=== PATIENT | female | born 1990 | race Caucasian/White ===

== ENCOUNTER 2017-05-15 23:00 | Observation (INO) | payer MEDICAID ==
[2017-05-15] MEDS ORDERED: Naloxone 2 MG/2 ML Syringe IVPUSH ONE (23:02)
[2017-05-15 23:26] LABS: CHLORIDE,CL 106 mmol/L (101-111); SODIUM,NA 139 mmol/L (135-145)
--- NOTE | 2017-05-15 23:32 | EDM.PDOC ---
ED HPI GENERAL MEDICAL PROBLEM - General Chief Complaint: Drug or Alcohol Abuse Stated Complaint: AMBULANCE Time Seen by Provider: 05/15/17 23:08 Source of Information: Reports: Patient, EMS - History of Present Illness INITIAL COMMENTS - FREE TEXT/NARRATIVE: ED via [facility] with altered mental status. Mother reported to have called for welfare check on patient. Found by [facility] unresponsive. EMS reported no response to sternal rub. Pupils nonreactive at 5. Narcan 2mg given enroute. Patient lethargic on arrival, Slow response to questions, admits to taking 2 bottles of Triple C around supper time, Response vague with other ingestion, variable response to unknown what else she took, to denying other ingestion, EMS reported uempty bottle of ibuprofen in vicinity. Patient incontinent of stool. [place] liquid emesis on scene. Patient denies threat to harm self. - Related Data Allergies Allergy/AdvReac Type Severity Reaction Status Date / Time iodine Allergy Cannot Verified 05/16/17 05:41 Remember morphine Allergy Cannot Verified 05/16/17 05:41 Remember Home Meds: Home Meds . [Unable to Verify Home Med List] 05/15/17 [History] Social & Family History - Tobacco Use Smoking Status *Q: Unknown Ever Smoked ED ROS GENERAL - Review of Systems Review Of Systems: Unable To Obtain - Physical Exam Exam: See Below Exam Limited By: Altered Mental Status General Appearance: Lethargic, Obese Eye Exam: Bilateral Eye: PERRL (sluggish 6mm) Ears: Normal External Exam, Normal TMs Nose: Normal Inspection Throat/Mouth: Normal Inspection Head Exam: Atraumatic, Normocephalic Neck: No: Lymphadenopathy (L), Lymphadenopathy (R) Respiratory/Chest: No Respiratory Distress, Lungs Clear, Normal Breath Sounds Cardiovascular: Normal Peripheral Pulses, Regular Rate, Rhythm GI/Abdominal: Normal Bowel Sounds, Soft Neuro Exam (Abbreviated): Inattentive, Slow to Respond. No: Alert Extremities: Normal Inspection Skin Exam: Warm, Dry, Intact, Tattoo(s) Course - Vital Signs Last Recorded V/S: Last Vital Signs Temp 98.0 F 05/15/17 23:20 Pulse 73 05/16/17 04:45 Resp 16 05/16/17 04:45 BP 152/98 H 05/16/17 04:45 Pulse Ox 96 05/16/17 04:45 - Orders/Labs/Meds Orders: Active Orders 24 hr Category Date Time Status Patient Status [ADT] Routine ADT 05/16/17 07:14 Active Cardiac Monitoring [RC] CONTINUOUS Care 05/16/17 07:16 Active EKG Documentation Completion [RC] URGENT Care 05/15/17 23:00 Active Oxygen Therapy [RC] PRN Care 05/16/17 07:14 Active Up With Assistance [RC] ASDIRECTED Care 05/16/17 07:14 Active VTE/DVT Education [RC] PER UNIT ROUTINE Care 05/16/17 07:14 Active Vital Signs [RC] Q4H Care 05/16/17 07:14 Active Consult to Psychiatric Intake Coord [Behavioral Health Cons 05/16/17 07:17 Active Evaluation] [CONS] Routine CHLAMYDIA TRACHOMATIS/GC AMPLF Urgent Lab 05/15/17 23:06 Received CULTURE URINE [] Stat Lab 05/15/17 23:06 Received Heparin Sodium Med 05/16/17 14:00 Ordered 5,000 units SUBCUT Q8HR Sodium Chloride 0.9% [Normal Saline] 1,000 ml Med 05/16/17 00:15 Active IV .BOLUS Sodium Chloride 0.9% [Normal Saline] 1,000 ml Med 05/16/17 07:15 Ordered IV ASDIRECTED Resuscitation Status Routine Resus Stat 05/16/17 07:14 Ordered Medication Orders Heparin Sodium (Porcine) (Heparin Sodium) 5,000 units SUBCUT Q8HR DIPTI Sodium Chloride (Normal Saline) 1,000 mls @ 100 mls/hr IV .BOLUS ONE Stop: 05/16/17 10:14 Last Admin: 05/16/17 00:20 Dose: 100 mls/hr Sodium Chloride (Normal Saline) 1,000 mls @ 100 mls/hr IV ASDIRECTED [facility] Labs: Laboratory Tests 05/15/17 05/15/17 05/15/17 Range/Units 23:00 23:00 23:00 WBC 20.9 H (5.0-10.0) 10^3/uL RBC 6.21 H (4.2-5.4) 10^6/uL Hgb 16.2 H (12.0-16.0) g/dL Hct 47.2 H (37.0-47.0) % MCV 76.0 L (80-100) fL MCH 26.1 L (27.0-34.0) pg MCHC 34.3 (33.0-35.0) g/dL Plt Count 236 (150-450) 10^3/uL Neut % (Auto) 87.1 H (42.2-75.2) % Lymph % (Auto) 9.8 L (20.5-50.1) % [place] % (Auto) 3.1 (2-8) % Eos % (Auto) 0.0 L (1.0-3.0) % Baso % (Auto) 0.0 (0.0-1.0) % Sodium 139 (135-145) mmol/L Potassium 3.9 (3.6-5.0) mmol/L Chloride 106 (101-111) mmol/L Carbon Dioxide 19.0 L (21.0-31.0) mmol/L Anion Gap 17.9 BUN 7 (7-18) mg/dL Creatinine 1.2 (0.6-1.3) mg/dL Est Cr Clr Drug Dosing 69.69 mL/min Estimated GFR (MDRD) 55 BUN/Creatinine Ratio 5.83 Glucose 121 H (74-105) mg/dL Calcium 9.0 (8.4-10.2) mg/dl Total Bilirubin 0.5 (0.2-1.0) mg/dL AST 26 (10-42) IU/L ALT 17 (10-60) IU/L Alkaline Phosphatase 119 (42-121) IU/L Total Protein 7.9 (6.7-8.2) g/dl Albumin 4.6 (3.2-5.5) g/dl Globulin 3.3 Albumin/Globulin Ratio 1.39 Amylase 65 (28-100) U/L Lipase 26 (22-51) U/L Urine Color Yellow (YELLOW) Urine Appearance Cloudy (CLEAR) Urine pH 5.5 (5.0-9.0) Ur Specific [place] 1.015 (1.005-1.030) Urine Protein Negative (NEGATIVE) Urine Glucose (UA) Negative (NEGATIVE) Urine Ketones Negative (NEGATIVE) Urine Occult Blood Trace-intact H (NEGATIVE) Urine Nitrite Positive H (NEGATIVE) Urine Bilirubin Negative (NEGATIVE) Urine Urobilinogen 0.2 (0.2-1.0) mg/dL Ur Leukocyte Esterase Small H (NEGATIVE) Urine RBC 0-5 /HPF Urine WBC 20-30 H (0-5/HPF) /HPF Ur Epithelial Cells Moderate H /HPF Urine Bacteria Many H (0-FEW/HPF) /HPF Urinalysis Comment Salicylates < 4.0 Urine Opiates Screen (NEGATIVE) Ur Oxycodone Screen (NEGATIVE) Urine Methadone Screen (NEGATIVE) Acetaminophen < 10.0 Ur Barbiturates Screen (NEGATIVE) U Tricyclic Antidepress (NEGATIVE) Ur Phencyclidine Scrn (NEGATIVE) Ur Amphetamine Screen (NEGATIVE) U Methamphetamines Scrn (NEGATIVE) Urine MDMA Screen (NEGATIVE) U Benzodiazepines Scrn (NEGATIVE) Urine Cocaine Screen (NEGATIVE) U Marijuana (THC) Screen (NEGATIVE) Ethyl Alcohol < 5 mg/dL 05/15/17 05/16/17 05/16/17 Range/Units 23:06 03:00 03:00 WBC (5.0-10.0) 10^3/uL RBC (4.2-5.4) 10^6/uL Hgb (12.0-16.0) g/dL Hct (37.0-47.0) % MCV (80-100) fL MCH (27.0-34.0) pg MCHC (33.0-35.0) g/dL Plt Count (150-450) 10^3/uL Neut % (Auto) (42.2-75.2) % Lymph % (Auto) (20.5-50.1) % [place] % (Auto) (2-8) % Eos % (Auto) (1.0-3.0) % Baso % (Auto) (0.0-1.0) % Sodium 139 (135-145) mmol/L Potassium 3.8 (3.6-5.0) mmol/L Chloride 106 (101-111) mmol/L Carbon Dioxide 23.0 (21.0-31.0) mmol/L Anion Gap 13.8 BUN 7 (7-18) mg/dL Creatinine 0.8 (0.6-1.3) mg/dL Est Cr Clr Drug Dosing 104.54 mL/min Estimated GFR (MDRD) > 60 BUN/Creatinine Ratio Glucose 105 (74-105) mg/dL Calcium 8.7 (8.4-10.2) mg/dl Total Bilirubin (0.2-1.0) mg/dL AST (10-42) IU/L ALT (10-60) IU/L Alkaline Phosphatase (42-121) IU/L Total Protein (6.7-8.2) g/dl Albumin (3.2-5.5) g/dl Globulin Albumin/Globulin Ratio Amylase (28-100) U/L Lipase (22-51) U/L Urine Color (YELLOW) Urine Appearance (CLEAR) Urine pH (5.0-9.0) Ur Specific [place] (1.005-1.030) Urine Protein (NEGATIVE) Urine Glucose (UA) (NEGATIVE) Urine Ketones (NEGATIVE) Urine Occult Blood (NEGATIVE) Urine Nitrite (NEGATIVE) Urine Bilirubin (NEGATIVE) Urine Urobilinogen (0.2-1.0) mg/dL Ur Leukocyte Esterase (NEGATIVE) Urine RBC /HPF Urine WBC (0-5/HPF) /HPF Ur Epithelial Cells /HPF Urine Bacteria (0-FEW/HPF) /HPF Urinalysis Comment Salicylates Urine Opiates Screen Positive H (NEGATIVE) Ur Oxycodone Screen Negative (NEGATIVE) Urine Methadone Screen Negative (NEGATIVE) Acetaminophen < 10.0 Ur Barbiturates Screen Negative (NEGATIVE) U Tricyclic Antidepress Negative (NEGATIVE) Ur Phencyclidine Scrn Negative (NEGATIVE) Ur Amphetamine Screen Negative (NEGATIVE) U Methamphetamines Scrn Negative (NEGATIVE) Urine MDMA Screen Negative (NEGATIVE) U Benzodiazepines Scrn Negative (NEGATIVE) Urine Cocaine Screen Negative (NEGATIVE) U Marijuana (THC) Screen Negative (NEGATIVE) Ethyl Alcohol mg/dL Meds: Medications Generic Name Dose Route Start Last Admin Trade Name Freq PRN Reason Stop Dose Admin Heparin Sodium (Porcine) 5,000 units 05/16/17 14:00 Heparin Sodium SUBCUT Q8HR DIPTI Sodium Chloride 1,000 mls @ 100 mls/hr 05/16/17 00:15 05/16/17 00:20 Normal Saline IV 05/16/17 10:14 100 mls/hr .BOLUS ONE Administration Sodium Chloride 1,000 mls @ 100 mls/hr 05/16/17 07:15 Normal Saline IV ASDIRECTED DIPTI Discontinued Medications Generic Name Dose Route Start Last Admin Trade Name Freq PRN Reason Stop Dose Admin Naloxone HCl 2 mg 05/15/17 23:02 05/15/17 23:29 Narcan IVPUSH 05/15/17 23:03 2 mg ONETIME ONE Administration Trimethoprim/Sulfamethoxazole 1 tab 05/16/17 05:42 05/16/17 05:55 Septra Ds PO 05/16/17 05:43 1 tab ONETIME ONE Administration - Re-Assessments/Exams Free Text/Narrative Re-Assessment/Exam: 05/16/17 00:35 Dozing, arouses to voices, slow responses. Vitals stable, Poison control contacted. Supportive care, peak effect 2 hours . 05/16/[address] Griffin regarding patient due to continued symptoms secondary to presumed intentional ingestion of minimum 16 coricidin tablets, of weakness blurred vision and unsteady on feet. Patient variable responses on details of past evening. [facility] crisis counselor here to assess patient and unable to gather accurate assessment due to mental status. Dr. Griffin agreeable to admit for observation with further evaluation when more alert. Crisis counselor will return. Mother did return call and had not talked directly with patient but had received worrisome text from daughter that she didn't think she could go on and requested mother say goodbye to the boys for her. Mother reported then calling for welfare check. Patient vital signs stable, awake, unsteady on feet when up to bathroom, Shakey when attempting to drink from glass. Observed in wheelchair being able to bend over and cigar packer and picker her clothing back from floor easily. Departure - Departure Time of Disposition: 07:10 Disposition: Admitted As Inpatient 67 Condition: Fair Clinical Impression: Drug abuse, Intentional overdose of drug in tablet form - Discharge Information Forms: ED Department Discharge - My Orders Last 24 Hours: My Active Orders 05/15/17 23:00 EKG Documentation Completion [RC] URGENT 05/15/17 23:06 CHLAMYDIA TRACHOMATIS/GC AMPLF Urgent CULTURE URINE [RM] Stat 05/16/17 00:15 Sodium Chloride 0.9% [Normal Saline] 1,000 ml IV .BOLUS - Assessment/Plan Last 24 Hours: My Active Orders 05/15/17 23:00 EKG Documentation Completion [RC] URGENT 05/15/17 23:06 CHLAMYDIA TRACHOMATIS/GC AMPLF Urgent CULTURE URINE [RM] Stat 05/16/17 00:15 Sodium Chloride 0.9% [Normal Saline] 1,000 ml IV .BOLUS
[2017-05-15 23:37] LABS: ACETAMINOPHEN < 10.0
[2017-05-16] MEDS ORDERED: Sodium Chloride 0.9% 1,000 ML IV ONE (00:15)
[2017-05-16 03:28] LABS: CHLORIDE,CL 106 mmol/L (101-111); SODIUM,NA 139 mmol/L (135-145)
[2017-05-16] MEDS ORDERED: Sulfamethoxazole/Trimethoprim 800-160 MG Tab PO ONE (05:42)
[2017-05-16] MEDS ORDERED: Sodium Chloride 0.9% 1,000 ML IV SCH (07:15)
[2017-05-16] MEDS ORDERED: Ondansetron 4 MG/2 ML SDV IV PRN (09:14)
[2017-05-16] MEDS: cefTRIAXone 1 GM in Sodium Chloride 0.9% 50 ML IV SCH ×2 (11:00→22:17)
[2017-05-16] MEDS ORDERED: Heparin Sodium 5,000 Units/ML Vial SUBCUT SCH (14:00)
[2017-05-16] MEDS: Heparin Sodium 5,000 Units/ML Vial SUBCUT SCH ×2 (14:36→22:17)
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
[2017-05-17 07:01] VITALS: BP 120/78
[2017-05-17] MEDS: Heparin Sodium 5,000 Units/ML Vial SUBCUT SCH ×2 (07:04→13:59)
[2017-05-17] MEDS: Sodium Chloride 0.9% 10 ML Syringe FLUSH PRN ×3 (10:12→10:51)
[2017-05-17] MEDS: cefTRIAXone 1 GM in Sodium Chloride 0.9% 50 ML IV SCH (10:13)
[2017-05-17] MEDS ORDERED: Azithromycin 250 MG Tab PO ONE (13:15)
--- NOTE | 2017-06-04 02:14 | DISCH ---
DISCHARGE DIAGNOSES: 1. Altered mental status, resolved. 2. Voluntary ingestion of a large number of [id number]-oyd-[id number] cold medication, contributing to the altered mental status. 3. Urine toxicology positive for opiates. 4. Depression. 5. Social, economic and family stressors. 6. Tobacco habituation, 1 pack per day x12 years. 7. Bacterial vaginosis. Clue cells noted in urinalysis. 8. Empirically treated for STDs during this admission. BRIEF HISTORY OF PRESENT ILLNESS: Rukhsana Kramer is a 27-year-old female, who was brought from her home by ambulance to the Emergency Department. She had texted her mother in [place]. Her mother was quite concerned about the nature of the message that she sent and for her welfare. She called the Police Department in [place] and asked for a welfare check. Rukhsana was found unresponsive in her home and was brought to the emergency room for further evaluation. In the emergency room, she was confused and uncoordinated. It was noted that her clothing was soiled and it was unclear whether there has been any type of seizure activity. She was given 1 dose of Narcan en route to the hospital. Urine toxicology was positive for opiates, although she denied having taken any and could not explain "how they got into my urine," She was admitted for further observation and management after the emergency room provider discussed the case with poison control. The recommendation was for observation with no antidote or active charcoal given. The Crisis counsellor from [facility] also saw her in the Ermergency Department but was unable to conduct an adqequate interview because of Rukhsana's altered mental state. Pertinent labs and x-rays: CBC showed initial white count of 20.9 and on repeat today this morning was 7.9, most likely demargination in a stress-related situation. Hemoglobin and hematocrit were elevated at 16 and 47 and improved to 13.9 and 41.5 with hydration. Platelets were normal. Electrolytes and LFTs were normal. Her initial carbon dioxide level was slightly low at 19.0 and was corrected to 23 the following day. Renal function was preserved with a GFR of more than 60. Blood sugars were unremarkable. Amylase and lipase were normal. Urinalysis showed a cloudy yellow urine with a specific gravity 1.015 and showed 0-5 rbc's, 20 to 30 wbc's with many bacteria. She was also noted to have clue cells on microscopic exam. Urine toxicology was positive for opiates and no other substances. Tylenol and aspirin were not detected and blood alcohol was undetected. Additional lab work was performed based on information gained in the history and physical and included the following. RPR which is nonreactive. Urine Chlamydia and Gonorrhea were not detected. Hepatitis C antibody was nonreactive. Hepatitis B surface antigen was nonreactive and her hepatitis B surface antibody shows that she is non-immune. HIV-1 and 2 were nonreactive. Urine culture was positive for E. coli and was a completely sensitive organism with no resistance. HOSPITAL COURSE: She was admitted for observation. She was on telemetry. Telemetry during this admission showed a normal sinus rhythm. She was kept n.p.o. until she could protect her airway and was started on IV fluids with normal saline. Subcutaneous heparin was used for VTE prophylaxis. After admission she was given 1 Bactrim double-strength tablet and then was started on ceftriaxone 1 g IV every 12 hours prior to discharge. During the admission, Rukhsana mentioned that she was concerned about a possible sexual encounter she had a month before. Please see H and P for further details. She was tested for Chlamydia, gonorrhea and syphilis, and these were all negative. Her hepatitis and HIV status was also negative. She agreed to be treated empiracally for possible STDs, based on the sexual encounter last month. Because she was treated with ceftriaxone for the urinary tract infection, this will cover gonorrhea and she agreed to be treated for Chlamydia. She was given azithromycin 1000 mg as a single dose. We also referred her to [facility] in [place] for further assistance and management of long-term [employer] health and STD detection. Rukhsana's mental status improved and we were able to have a long discussion regarding the events leading up to her ingestion of the cold tablets. Apparently, she had been taking the cold tablets intermittently to "get a buzz" and would take as many as 8 Coricidin Cough and cold tablets at a time. She denied any narcotic drug abuse, although she was opiate positive on the urine toxicology screen. Rukhsana has been estranged from her family for about the last year and a half. She has 2 sons, who currently visiting their father in [place]. We spent some time talking about the estrangment from her mother and encouraged her to try to get past whatever issues they had and reach out to her family. She was feeling better. She was neurologically intact. Her vital signs were stable. She was taking in adequate fluids. She was voiding and moving her bowels and tolerating her diet and she felt that she was ready to be discharged to home. She had been seen in the Emergency Department by the Crisis Line counselor, who was unable to have much of a discussion with her as she was somewhat incoherent. The following morning, two workers from [facility] did come to see her. They offered her counseling and explained to her that they have open intake from Saturday to mornings 8:30 to 10:30, and they welcomed her to come in and be seen. She is aware of this and said that she would think about it. PHYSICAL EXAMINATION: VITAL SIGNS: On the day of discharge; blood pressure was 120/78, pulse 100, respiratory rate 20, and oxygen saturation 96% on room air. She is afebrile. Weight 205 pounds 9.6 ounces, height 5 feet 2 inches. HEENT: Unremarkable. ENT: Clear. No JVDs or bruits. No adenopathy. CHEST: Showed clear bilateral breath sounds. HEART: Showed regular rate and rhythm. ABDOMEN: Soft, benign, nontender. EXTREMITIES: Showed no edema. NEUROLOGICAL: There were no gross motor or sensory deficits. At time of discharge, she was completely awake, alert, and oriented. Affect was positive and she participated throughout the interview. IMPRESSION: A 27-year-old female, who ingested 32 tablets of an over-the- counter cough and antihistamine medication. She admits that she has been occasionally taking this 8 tablets at a time to get high. She denied that this was a suicide attempt. PLAN: She will be discharged to home in stable condition. She is strongly encouraged to follow up with Human Services. HOME MEDICATIONS: 1. She is on no chronic medications. 2. She was given a prescription for Metrogel vaginal cream to be used at bedtime for 5 nights, this was given because clue cells were seen in urinalysis. ALLERGIES: Iodine and morphine. Types of allergies are unknown. FOLLOWUP: I did call February when all of her extra test results returned and reviewed her hepatitis, HIV, and RPR results. We also reviewed the results of the Chlamydia and Gonorrhea as well. It turned out that she had decided to return home to [place]. When I spoke to her, she was there and had been in contact with her mother. Her mood and affect were much improved on the phone and she is going to try to work on some of the issues that came up during our discussions while she was in the hospital. We strongly encouraged her to continue with these and to reach out to family and to executive secretary social welfare for ongoing support. CONDITION AT TIME OF DISCHARGE: Much improved and stable. FILIBERTO /[id number] PREETI
--- NOTE | 2017-06-05 13:14 | EKG ---
05/15/2017- KAROL ENRIQUE GONZALO - FINDINGS: EKG shows normal sinus rhythm. The rate is 97 per minute. [facility] /[id number]
== END 2017-05-17 14:15 | disposition home or self-care (01) ==
LOC: DL.ED 23:00 → UNDOADMOB 05-16 07:01 → DL.MS 05-16 07:01
PROVIDERS: ADMIT Hospitalist; ATTEND Hospitalist
DX: T50.992A Poisoning by other drugs, medicaments and biological substances, intentional self-harm, initial encounter (principal); R41.82 Altered mental status, unspecified; F19.10 Other psychoactive substance abuse, uncomplicated; Z88.8 Allergy status to other drugs, medicaments and biological substances; Z90.49 Acquired absence of other specified parts of digestive tract; Z98.51 Tubal ligation status; Z98.890 Other specified postprocedural states; F17.210 Nicotine dependence, cigarettes, uncomplicated
CPT/HCPCS: 36415; 80048; 80053; 80305; 81001; 82150; 83690; 85025; 86592; 86706; 86803; 87086; 87340; 87389; 87491; 87591; 93005; 93010; A9270; G0480; J0696; J1644; J2310; J7030; J7050; 87088; 87186; 96361; 96365; 96366; 96372; 96374; 96375; 99285; G0378